=== PATIENT | male | born 1975 | race African-American/Black ===

== ENCOUNTER 2025-01-06 08:43 | Inpatient (IN) | payer MEDICAID ==
[~2025-01-06] VITALS: Ht 162.6 cm; Wt 54.9 kg
[2025-01-06 08:47] VITALS: O2SAT 96
[2025-01-06] MEDS: KETOROLAC 30MG/ML VIAL IM ONE (10:04)
[2025-01-06 10:18] LABS: HEMATOCRIT. 54.5 % (42.0-52.0)
[2025-01-06 10:23] LABS: CREATININE 1.6 mg/dL (0.6-1.3); ETHANOL BLOOD < 10 mg/dL (<10); UREA NITROGEN BLOOD 30 mg/dL (9-23)
[2025-01-06 10:25] LABS: ASPARTATE AMINOTRANSFERASE 15 IU/L (<34); BILIRUBIN DIRECT 0.6 mg/dL (<=3.0); BILIRUBIN TOTAL 1.2 mg/dL (0.1-1.0); PROTEIN TOTAL 7.0 g/dL (6.0-8.3)
[2025-01-06 10:28] LABS: HEMOGLOBIN. 17.8 g/dL (14.0-18.0); MEAN PLATELET VOLUME 9.4 fl (7.4-10.4); PLATELET 285 x1000/uL (130-400); RED BLOOD CELL COUNT 6.53 mill/uL (4.7-6.1); RED CELL DISTRIBUTION WIDTH 14.3 % (11.6-14.6)
[2025-01-06 10:30] LABS: INR 1.1
[2025-01-06] MEDS: SODIUM CHLORIDE 0.9% 1,000 ML IV ONE ×2 (11:30→11:53)
[2025-01-06 11:39] LABS: BAND% 9.0 % (1.0-6.0); LYMPHOCYTES % MANUAL 5.0 % (20.0-50.0); MONOCYTES % MANUAL 7.0 % (2.0-8.0); NEUTROPHILS % MANUAL 79.0 % (45.0-75.0); PLATELET ESTIMATE NORMAL
[2025-01-06] MEDS: MORPHINE SULFATE 4 MG/ML INJ (FOR IV/IM USE) IV ONE (11:52)
[2025-01-06] MEDS: DIATR MEGLU/DIATRIZOATE SOLN 30ML ONE (11:53)
[2025-01-06] MEDS: PIPERACILLIN/TAZO 3.375G/50ML 50 ML IV STA (11:53)
[2025-01-06] MEDS ORDERED: DIATR MEGLU/DIATRIZOATE SOLN 120ML ONE (13:47)
[2025-01-06] MEDS ORDERED: DEXT 5%/0.45% NACL KCL 20MEQ/L 1,000 ML IV SCH (15:15)
[2025-01-06] MEDS ORDERED: ONDANSETRON HCL 4MG/2ML INJ IV PRN ×2 (15:15→17:15)
[2025-01-06] MEDS ORDERED: ACETAMINOPHEN 1000MG/100ML 100 ML IV ONE (15:57)
[2025-01-06] MEDS ORDERED: NALOXONE HCL 0.4MG/ML VIAL IV PRN (16:00)
[2025-01-06] MEDS ORDERED: HYDRALAZINE 20MG/ML VIAL IV PRN (17:15)
[2025-01-06] MEDS ORDERED: LACTATED RINGERS 1,000 ML IV NR (17:30)
[2025-01-06] MEDS: HYDROMORPHONE HCL/PF 1MG/ML INJ IV PRN (18:15)
[2025-01-06 20:00] VITALS: BP 114/62; PULSE 100; RESP 17; TEMP 37.6; O2SAT 97
[2025-01-07] VITALS (8 sets, daily range): BP systolic 112–147; BP diastolic 74–94; PULSE 70–98; RESP 16–18; TEMP 36.2–36.9184; O2SAT 97–99
[2025-01-07] MEDS: DEXT 5%/0.45% NACL KCL 20MEQ/L 1,000 ML IV SCH (02:58)
[2025-01-07] MEDS: FAMOTIDINE 20MG/2ML VIAL IV SCH (03:14)
[2025-01-07] MEDS: MORPHINE SULFATE 2 MG/ML INJ (NOT FOR IM USE) IV PRN (03:31)
[2025-01-07] MEDS: PIPERACILLIN/TAZO 3.375G/50ML 50 ML IV SCH (14:00)
[2025-01-08] VITALS: BP 137/80; PULSE 67; RESP 16; TEMP 36.3; O2SAT 100
[2025-01-08 04:00] VITALS: BP 145/92; PULSE 99; RESP 16; TEMP 36.7; O2SAT 99
[2025-01-08] MEDS: MORPHINE SULFATE 4 MG/ML INJ (FOR IV/IM USE) IV PRN (05:09)
[2025-01-08 08:00] VITALS: BP 112/79; PULSE 52; RESP 20; TEMP 36.3; O2SAT 100
[2025-01-08 16:00] VITALS: BP 152/84; PULSE 60; RESP 15; TEMP 36.3; O2SAT 100
[2025-01-08 19:07] LABS: BASOPHILS % 0.1 % (0.0-2.0); EOSINOPHILS % 1.0 % (0.0-5.0); HEMATOCRIT. 37.1 % (42.0-52.0); HEMOGLOBIN. 12.2 g/dL (14.0-18.0); LYMPHOCYTES % 19.2 % (20.0-50.0); MEAN PLATELET VOLUME 8.9 fl (7.4-10.4); MONOCYTES % 12.4 % (2.0-8.0); NEUTROPHILS % 67.3 % (40.0-76.0); PLATELET 181 x1000/uL (130-400); RED BLOOD CELL COUNT 4.36 mill/uL (4.7-6.1); RED CELL DISTRIBUTION WIDTH 14.5 % (11.6-14.6)
[2025-01-08 19:24] LABS: CREATININE 0.8 mg/dL (0.6-1.3)
[2025-01-08 19:25] LABS: UREA NITROGEN BLOOD 18 mg/dL (9-23)
[2025-01-08 20:00] VITALS: BP 136/82; PULSE 52; RESP 17; TEMP 36.4; O2SAT 100
[2025-01-09] VITALS: BP 156/90; PULSE 61; RESP 17; TEMP 36.4; O2SAT 99
[2025-01-09 04:00] VITALS: BP 143/92; PULSE 63; RESP 18; TEMP 36.7; O2SAT 96
[2025-01-09 08:00] VITALS: BP 152/91; PULSE 57; RESP 18; TEMP 36.6; O2SAT 100
[2025-01-09] MEDS ORDERED: HALOPERIDOL LACTATE 5MG/ML VIAL IM PRN (10:30)
[2025-01-09 12:00] VITALS: RESP 18
[2025-01-09 16:00] VITALS: BP 149/83; PULSE 53; RESP 20; TEMP 36.6; O2SAT 97
[2025-01-10 00:12] VITALS: BP 132/79; PULSE 58; RESP 16; TEMP 36.9; O2SAT 97
[2025-01-10 04:00] VITALS: BP 130/83; PULSE 60; RESP 16; TEMP 37.2; O2SAT 96
[2025-01-10 08:00] VITALS: BP 139/85; PULSE 61; RESP 16; TEMP 36.7; O2SAT 95
[2025-01-10 11:06] LABS: CLARITY URINE CLEAR (CLEAR); COLOR URINE DARK YELLOW (YELLOW); GLUCOSE URINE NEGATIVE (NEGATIVE); KETONES URINE NEGATIVE (NEGATIVE); LEUKOCYTE ESTERASE URINE NEGATIVE (NEGATIVE); NITRITE URINE NEGATIVE (NEGATIVE); OCCULT BLOOD URINE NEGATIVE (NEGATIVE); PH URINE 8.5 (4.5-8.0); PROTEIN URINE TRACE (NEGATIVE); SPECIFIC GRAVITY URINE 1.019 (1.005-1.030); UROBILINOGEN URINE 4.0 E.U./dL (0.2-1.0)
[2025-01-10 11:48] LABS: MUCUS URINE TRACE /lpf (NONE/TRACE)
[2025-01-10 11:49] LABS: SQUAMOUS EPITHELIAL CELL URINE NONE SEEN /lpf (RARE/1+)
[2025-01-10 11:50] LABS: BACTERIA URINE TRACE; RBC URINE NONE SEEN /hpf (0-2); WBC URINE 0-2 /hpf (0-2)
[2025-01-10 12:00] VITALS: BP 120/83; PULSE 61; RESP 16; TEMP 36.7; O2SAT 97
[2025-01-10 16:00] VITALS: BP 145/88; PULSE 64; RESP 18; TEMP 37.2; O2SAT 96
[2025-01-10 20:00] VITALS: BP 137/91; PULSE 64; RESP 16; TEMP 37.7; O2SAT 96
[2025-01-11] VITALS: BP 150/89; PULSE 66; RESP 19; TEMP 36.9; O2SAT 94
[2025-01-11 04:00] VITALS: BP 149/83; PULSE 62; RESP 17; TEMP 36.8; O2SAT 96
[2025-01-11 07:42] LABS: BASOPHILS % 0.1 % (0.0-2.0); EOSINOPHILS % 2.1 % (0.0-5.0); HEMATOCRIT. 40.4 % (42.0-52.0); HEMOGLOBIN. 13.0 g/dL (14.0-18.0); LYMPHOCYTES % 14.9 % (20.0-50.0); MEAN PLATELET VOLUME 8.5 fl (7.4-10.4); MONOCYTES % 10.1 % (2.0-8.0); NEUTROPHILS % 72.8 % (40.0-76.0); PLATELET 262 x1000/uL (130-400); RED BLOOD CELL COUNT 4.84 mill/uL (4.7-6.1); RED CELL DISTRIBUTION WIDTH 14.1 % (11.6-14.6)
[2025-01-11 07:50] LABS: CREATININE 0.8 mg/dL (0.6-1.3)
[2025-01-11 07:51] LABS: UREA NITROGEN BLOOD 6 mg/dL (9-23)
[2025-01-11 08:00] VITALS: BP 136/84; PULSE 73; RESP 20; TEMP 36.3; O2SAT 96
[2025-01-11 12:00] VITALS: BP 130/88; PULSE 72; RESP 20; TEMP 36.4; O2SAT 95
[2025-01-11 16:00] VITALS: BP 132/91; PULSE 82; RESP 18; TEMP 36.2; O2SAT 97
[2025-01-11] MEDS: HYDROCODONE/ACETAMINOPHEN 10/325MG TABLET PO PRN (17:36)
[2025-01-11 20:00] VITALS: BP 120/82; PULSE 69; RESP 18; TEMP 36.2; O2SAT 96
[2025-01-12] VITALS: BP 126/80; PULSE 68; RESP 17; TEMP 36.1; O2SAT 96
[2025-01-12 04:00] VITALS: BP 104/70; PULSE 66; RESP 17; TEMP 36.1; O2SAT 97
[2025-01-12 08:00] VITALS: BP 117/81; PULSE 78; RESP 18; TEMP 35.9; O2SAT 97
[2025-01-12 12:00] VITALS: BP 107/73; PULSE 71; RESP 18; TEMP 36.6; O2SAT 98
[2025-01-12 16:00] VITALS: BP 122/75; PULSE 65; RESP 18; TEMP 36.6; O2SAT 98
[2025-01-12 20:00] VITALS: BP 112/73; PULSE 71; RESP 18; TEMP 36.2; O2SAT 97
[2025-01-12 22:40] LABS: CREATININE 0.9 mg/dL (0.6-1.3); UREA NITROGEN BLOOD 7 mg/dL (9-23)
[2025-01-12 22:41] LABS: BASOPHILS % 0.5 % (0.0-2.0); EOSINOPHILS % 2.6 % (0.0-5.0); HEMATOCRIT. 41.2 % (42.0-52.0); HEMOGLOBIN. 13.6 g/dL (14.0-18.0); LYMPHOCYTES % 19.8 % (20.0-50.0); MONOCYTES % 8.6 % (2.0-8.0); NEUTROPHILS % 68.5 % (40.0-76.0); RED BLOOD CELL COUNT 4.88 mill/uL (4.7-6.1); RED CELL DISTRIBUTION WIDTH 14.2 % (11.6-14.6)
[2025-01-12 23:10] LABS: MEAN PLATELET VOLUME 9.0 fl (7.4-10.4); PLATELET 317 x1000/uL (130-400)
[2025-01-13] VITALS: BP 109/64; PULSE 66; RESP 18; TEMP 36.1; O2SAT 97
[2025-01-13 08:00] VITALS: BP 108/73; PULSE 72; RESP 18; TEMP 36.8; O2SAT 95
[2025-01-13 12:00] VITALS: BP 117/78; PULSE 63; RESP 18; TEMP 36.6; O2SAT 95
[2025-01-13 16:00] VITALS: BP 121/79; PULSE 85; RESP 18; TEMP 36.7; O2SAT 98
[2025-01-13 20:00] VITALS: BP 111/72; PULSE 77; RESP 18; TEMP 36.2; O2SAT 98
[2025-01-14] VITALS: BP 117/72; PULSE 74; RESP 17; RESP 18; TEMP 36.1; O2SAT 97
[2025-01-14 04:00] VITALS: BP 107/78; PULSE 80; RESP 18; TEMP 36.4; O2SAT 96
[2025-01-14 08:00] VITALS: BP 116/78; PULSE 84; RESP 20; TEMP 36.6; O2SAT 98
[2025-01-14] MEDS ORDERED: PROT40 MT (10:11)
[2025-01-14 12:00] VITALS: BP 107/82; PULSE 83; RESP 16; TEMP 36.2; O2SAT 97
[2025-01-14 16:00] VITALS: BP 121/77; PULSE 75; RESP 15; TEMP 36.6; O2SAT 99
[2025-01-14 20:00] VITALS: BP 130/90; PULSE 75; RESP 17; TEMP 36.3; O2SAT 96
[2025-01-15] VITALS: BP 112/76; PULSE 67; RESP 18; TEMP 36.3; O2SAT 96
[2025-01-15 04:00] VITALS: BP 113/66; PULSE 74; RESP 17; TEMP 36.7; O2SAT 98
[2025-01-15 08:00] VITALS: BP 113/77; PULSE 68; RESP 19; TEMP 36.6; O2SAT 100
[2025-01-15 12:00] VITALS: BP 125/77; PULSE 67; RESP 19; TEMP 36.6; O2SAT 100
[2025-01-15 14:16] VITALS: BP 125/77; PULSE 67; RESP 19; TEMP 97.8
== END 2025-01-15 15:06 | disposition home or self-care (01) | DRG 710 ==
LOC: ER 08:43 → 5WST 13:25 → EDBEDREQTM 13:44 → EDBEDREQ 13:44
PROVIDERS: ADMIT Internal Medicine; ATTEND Internal Medicine
PROC: 0DQ60ZZ Repair Stomach, Open Approach (ICD-10-PCS; 2025-01-06)
PROC: 0D9670Z Drainage of Stomach with Drainage Device, Via Natural or Artificial Opening (ICD-10-PCS; principal; 2025-01-09)
DX: A41.9 Sepsis, unspecified organism (principal); N17.0 Acute kidney failure with tubular necrosis; K27.5 Chronic or unspecified peptic ulcer, site unspecified, with perforation; F31.9 Bipolar disorder, unspecified; K57.30 Diverticulosis of large intestine without perforation or abscess without bleeding; F17.210 Nicotine dependence, cigarettes, uncomplicated; K56.7 Ileus, unspecified; Z59.00 Homelessness unspecified
CPT/HCPCS: 36415; 74176; 80048; 80076; 80320; 81003; 82962; 85025; 86850; 86900; 87070; 87075; 87077; 96365; 96372; 96375; 99285; A4606; A4615; J1171; J1308; J1885; J2270; J2405; J2543; J7030; J7120; Q9963; G0480; J0131

== ENCOUNTER 2025-01-21 10:12 | Emergency (ER) | payer MEDICAID ==
[~2025-01-21] VITALS: Ht 167.6 cm; Wt 60.0 kg
[~2025-01-21 10:12] MED LIST: PROT40 MT
[2025-01-21 10:14] VITALS: O2SAT 99
[2025-01-21 10:15] VITALS: BP 100/71; PULSE 67; RESP 18; TEMP 36.9; O2SAT 100
== END 2025-01-21 11:36 | disposition home or self-care (01) ==
LOC: ER 10:12
DX: Z48.01 Encounter for change or removal of surgical wound dressing (principal); F31.9 Bipolar disorder, unspecified; Z79.899 Other long term (current) drug therapy
CPT/HCPCS: 99282